=== PATIENT | male | born 1985 | race Two or more races ===

== ENCOUNTER 2019-05-26 14:27 | Emergency (ER) | payer SELFPAY ==
[~2019-05-26] VITALS: Ht 180.3 cm; Wt 70.3 kg
[2019-05-26 14:32] VITALS: BP 128/85
[2019-05-26] MEDS ORDERED: KETOROLAC TROMETH 60MG/2ML VIAL IM ONE (15:15)
[2019-05-26] MEDS ORDERED: cefTRIAXone SOD 1,000 MG VL IM ONE (15:15)
== END 2019-05-26 15:37 | disposition home or self-care (01) ==
LOC: ER 14:33
DX: K02.9 Dental caries, unspecified (principal); L03.211 Cellulitis of face
CPT/HCPCS: 96372; 99283; J0696; J1885